=== PATIENT | female | born 1990 | race Hispanic/Latino ===

== ENCOUNTER 2023-01-17 12:05 | Observation (INO) | payer MEDICAID ==
[~2023-01-17] VITALS: Ht 167.6 cm; Wt 109.8 kg
[2023-01-17 13:46] LABS: BASOPHILS # (AUTO) 0.02 K/uL (0.00-0.20); BASOPHILS % (AUTO) 0.6 % (0.0-5.0); EOSINOPHILS % (AUTO) 2.8 % (0.0-8.0); HEMATOCRIT 36.8 % (36-48); IMMATURE GRANULOCYTE ABSOLUTE 0.02 K/uL (0-1); LYMPHOCYTES # (AUTO) 1.6 K/uL (1.0-4.8); LYMPHOCYTES % (AUTO) 43.2 % (21.0-51.0); MEAN CORPUSCULAR HEMOGLOBIN 28.2 pg (27.0-33.0); MEAN CORPUSCULAR HGB CONC 33.4 g/dL (32.0-36.0); MEAN CORPUSCULAR VOLUME 84.4 fL (79-99); MONOCYTES # (AUTO) 0.4 K/uL (0.1-1.0); NEUTROPHILS # (AUTO) 1.5 K/uL (1.8-7.7); NEUTROPHILS % (AUTO) 42.8 % (40.0-77.0); PLATELET COUNT (AUTO) 121 K/uL (130-400); RED BLOOD CELL COUNT(AUTO) 4.36 MIL/uL (4.00-5.50); RED CELL DISTRIBUTION WIDTH 13.2 % (11.0-15.5); WHITE BLOOD COUNT (AUTO) 3.6 K/uL (4.8-10.8)
[2023-01-17 13:47] LABS: ADD UA MICROSCOPIC YES; APPEARANCE,URINE CLEAR (CLEAR); BILIRUBIN,URINE NEGATIVE (NEGATIVE); COLOR,URINE YELLOW (YELLOW); GLUCOSE, URINE (UA) 70 mg/dL (NEGATIVE); KETONES,URINE NEGATIVE (NEGATIVE); LEUKOCYTE ESTERASE ,URINE 75 Leu/uL (NEGATIVE); NITRATE,URINE NEGATIVE (NEGATIVE); OCCULT BLOOD,URINE NEGATIVE (NEGATIVE); PH,URINE 6.5 (5.0-8.0); PROTEIN,URINE 10 mg/dL (NEGATIVE)
[2023-01-17 13:48] LABS: HCG,QUALITATIVE URINE NEGATIVE (NEGATIVE)
[2023-01-17 14:01] LABS: ALBUMIN 3.4 g/dL (3.5-5.0); BILIRUBIN,TOTAL 0.7 mg/dL (0.2-1.0); CREATININE 0.5 mg/dL (0.5-1.5); POTASSIUM 3.8 mmol/L (3.5-5.1); TOTAL PROTEIN, SERUM 8.2 g/dL (6.0-8.3)
[2023-01-17 14:15] LABS: MUCUS,URINE RARE LPF (None Seen); SQUAMOUS EPITHELIAL CELL,UR FEW /HPF (0-2)
[2023-01-17] MEDS ORDERED: CEFTRIAXONE 1G VIAL 1 GM in 0.9%NACL 50ML 50 ML IV SCH (14:30)
[2023-01-17] MEDS ORDERED: ACETAMINOPHEN 325 MG TAB PO PRN ×2 (14:30)
[2023-01-17] MEDS ORDERED: DEXTROSE 50%-WATER 50 ML DISP.SYRIN IV PRN (14:30)
[2023-01-17] MEDS ORDERED: LACTULOSE 20 GM/30 ML UDCUP PO PRN (14:30)
[2023-01-17] MEDS ORDERED: POTASSIUM CHLORIDE 20MEQ/100ML 100 ML IV PRN (14:30)
[2023-01-17] MEDS ORDERED: HYDROCODONE/ACETAMINOPHEN 5/325 MG TAB PO PRN ×2 (14:30)
[2023-01-17] MEDS ORDERED: KCL 20 MEQ ERTAB PO PRN (14:30)
[2023-01-17] MEDS ORDERED: MAGNESIUM 2GM PREMIX 50ML 50 ML IV PRN (14:30)
[2023-01-17] MEDS ORDERED: POTASSIUM CHLORIDE 10% ELIXIR 20 MEQ/15 ML UDCUP PO PRN (14:30)
[2023-01-17] MEDS ORDERED: ONDANSETRON 4MG INJ IV PRN (14:30)
[2023-01-17] MEDS ORDERED: NITROGLYCERIN 0.4 MG SL TAB SL PRN (14:30)
[2023-01-17] MEDS ORDERED: DIPHENHYDRAMINE HCL 25 MG CAPSULE PO PRN (14:30)
[2023-01-17] MEDS ORDERED: MAG/ALUM/SIMETH 30 ML UDCUP PO PRN (14:30)
[2023-01-17] MEDS ORDERED: GUAIFENESIN-DM 200/20 MG 10 ML PO PRN (14:30)
[2023-01-17] MEDS ORDERED: DiphenhydrAMINE HCL 50 MG/ML VIAL IV PRN (14:30)
[2023-01-17] MEDS ORDERED: GLUCAGON 1MG KIT 1 MG ML IM PRN (14:30)
[2023-01-17 14:57] LABS: INR 0.94 (0.85-1.15)
[2023-01-17 14:58] LABS: PARTIAL THROMBOPLASTIN TIME 28.8 SEC (26.3-35.5)
[2023-01-17 14:59] LABS: % IRON SATURATION 17.2 % (22-44)
[2023-01-17] MEDS ORDERED: CEFTRIAXONE 1G VIAL IVPB SCH (15:00)
[2023-01-17 15:21] LABS: HEMOGLOBIN A1C 9.6 % (4.0-6.0)
[2023-01-17] MEDS ORDERED: HYDROMORPHONE 0.5 MG SYG (0.5MG/0.5ML) IV PRN (15:30)
[2023-01-17] MEDS: LACTATED RINGERS 1000ML 1,000 ML IV SCH (16:01)
[2023-01-17] MEDS: INSULIN HUMULIN R 100 UNIT/ML 3ML SQ SCH ×2 (16:30→20:43)
[2023-01-17] MEDS ORDERED: 0.9%NACL 50ML IV SCH (17:00)
[2023-01-17] MEDS: ZOSYN 3.375GM +NS 50ML IVPB SCH (18:36)
[2023-01-17] MEDS: FAMOTIDINE 20MG TAB PO SCH (20:45)
[2023-01-17] MEDS ORDERED: FAMOTIDINE 20MG VIAL IV PRN (21:00)
[2023-01-17 22:10] VITALS: O2SAT 98
[2023-01-17 23:33] VITALS: BP 116/63; PULSE 81; RESP 20
[2023-01-18] MEDS: ZOSYN 3.375GM +NS 50ML IVPB SCH ×3 (02:08→17:22)
[2023-01-18] MEDS: LACTATED RINGERS 1000ML 1,000 ML IV SCH ×2 (02:08→03:50)
[2023-01-18] MEDS ORDERED: METF-446 PO (02:32)
[2023-01-18] MEDS ORDERED: LISI2.5T13 PO (02:34)
[2023-01-18] MEDS ORDERED: LEVO125 PO (02:37)
[2023-01-18] MEDS ORDERED: CANA300T PO (02:39)
[2023-01-18 02:44] LABS: HEPATITIS A IGM ANTIBODY Non-Reactive (Nonreactive); HEPATITIS B CORE IGM ANTIBODY Non-Reactive (Negative); HEPATITIS B SURFACE ANTIGEN Non-Reactive (Nonreactive); HEPATITIS C ANTIBODY Non-Reactive (Nonreactive)
[2023-01-18 03:18] VITALS: BP 111/71; PULSE 77; RESP 20
[2023-01-18] MEDS ORDERED: LIRA0.6P2 SQ (03:54)
[2023-01-18 06:15] LABS: BASOPHILS # (AUTO) 0.01 K/uL (0.00-0.20); BASOPHILS % (AUTO) 0.3 % (0.0-5.0); EOSINOPHILS % (AUTO) 2.9 % (0.0-8.0); HEMATOCRIT 33.5 % (36-48); IMMATURE GRANULOCYTE ABSOLUTE 0.02 K/uL (0-1); LYMPHOCYTES # (AUTO) 1.8 K/uL (1.0-4.8); LYMPHOCYTES % (AUTO) 51.2 % (21.0-51.0); MEAN CORPUSCULAR HEMOGLOBIN 28.4 pg (27.0-33.0); MEAN CORPUSCULAR HGB CONC 33.4 g/dL (32.0-36.0); MONOCYTES # (AUTO) 0.3 K/uL (0.1-1.0); MONOCYTES % (AUTO) 9.8 % (3.0-13.0); NEUTROPHILS # (AUTO) 1.2 K/uL (1.8-7.7); NEUTROPHILS % (AUTO) 35.2 % (40.0-77.0); PLATELET COUNT (AUTO) 105 K/uL (130-400); RED BLOOD CELL COUNT(AUTO) 3.94 MIL/uL (4.00-5.50); RED CELL DISTRIBUTION WIDTH 13.3 % (11.0-15.5); WHITE BLOOD COUNT (AUTO) 3.5 K/uL (4.8-10.8)
[2023-01-18 06:29] LABS: ALBUMIN 2.7 g/dL (3.5-5.0); BILIRUBIN,TOTAL 0.6 mg/dL (0.2-1.0); CREATININE 0.6 mg/dL (0.5-1.5); MAGNESIUM 1.7 mg/dL (1.80-2.40); PHOSPHORUS 4.3 mg/dL (2.5-4.9); POTASSIUM 3.9 mmol/L (3.5-5.1); TOTAL PROTEIN, SERUM 6.8 g/dL (6.0-8.3)
[2023-01-18 07:18] VITALS: BP 103/63; PULSE 68; RESP 16
[2023-01-18 07:35] VITALS: O2SAT 96
[2023-01-18] MEDS: INSULIN HUMULIN R 100 UNIT/ML 3ML SQ SCH ×4 (07:38→21:00)
[2023-01-18] MEDS: FAMOTIDINE 20MG TAB PO SCH ×2 (08:33→21:00)
[2023-01-18] MEDS: ENOXAPARIN SODIUM 40 MG/0.4 ML SYRINGE SQ SCH (08:34)
[2023-01-18 12:03] VITALS: BP 123/73; PULSE 70; RESP 16
[2023-01-18] MEDS: IRON SUCROSE COMPLEX 300 MG in 0.9% NACL 250ML IV SCH (12:07)
[2023-01-18 16:04] VITALS: BP 106/68; PULSE 74; RESP 16
[2023-01-18 20:16] VITALS: BP 110/68; PULSE 77; RESP 18; O2SAT 97
[2023-01-19 00:23] VITALS: BP 121/73; PULSE 84; RESP 18
[2023-01-19] MEDS: ZOSYN 3.375GM +NS 50ML IVPB SCH ×2 (01:01→08:49)
[2023-01-19 03:55] VITALS: BP 121/72; PULSE 76; RESP 18
[2023-01-19 06:49] LABS: BASOPHILS # (AUTO) 0.02 K/uL (0.00-0.20); BASOPHILS % (AUTO) 0.7 % (0.0-5.0); EOSINOPHILS # (AUTO) 0.08 K/uL (0.00-0.70); EOSINOPHILS % (AUTO) 2.8 % (0.0-8.0); HEMATOCRIT 35.9 % (36-48); IMMATURE GRANULOCYTE ABSOLUTE 0.02 K/uL (0-1); LYMPHOCYTES # (AUTO) 1.3 K/uL (1.0-4.8); LYMPHOCYTES % (AUTO) 45.2 % (21.0-51.0); MEAN CORPUSCULAR HEMOGLOBIN 28.8 pg (27.0-33.0); MEAN CORPUSCULAR HGB CONC 32.9 g/dL (32.0-36.0); MEAN CORPUSCULAR VOLUME 87.6 fL (79-99); MONOCYTES # (AUTO) 0.3 K/uL (0.1-1.0); MONOCYTES % (AUTO) 10.6 % (3.0-13.0); NEUTROPHILS # (AUTO) 1.1 K/uL (1.8-7.7); PLATELET COUNT (AUTO) 115 K/uL (130-400); RED CELL DISTRIBUTION WIDTH 13.3 % (11.0-15.5); WHITE BLOOD COUNT (AUTO) 2.8 K/uL (4.8-10.8)
[2023-01-19] MEDS: INSULIN HUMULIN R 100 UNIT/ML 3ML SQ SCH ×2 (06:51→12:29)
[2023-01-19 07:08] LABS: BILIRUBIN,TOTAL 0.6 mg/dL (0.2-1.0); CREATININE 0.5 mg/dL (0.5-1.5); POTASSIUM 3.5 mmol/L (3.5-5.1); TOTAL PROTEIN, SERUM 7.4 g/dL (6.0-8.3)
[2023-01-19 07:18] LABS: EOSINOPHILS % (MANUAL) 3 % (1-6); LYMPHOCYTES % (MANUAL) 39 % (22-44); MAN.DIFF COMMENT-IMPRESSION MANUAL DIFFERENTIAL; MONOCYTES % (MANUAL) 9 % (2-9); SEGMENTED NEUTROPHILS % 49 % (40-70); TOTAL CELLS COUNTED 100
[2023-01-19 07:19] LABS: PLATELET MORPHOLOGY COMMENT SLIGHT INCREASED; WBC MORPHOLOGY SLIDE REVIEWED
[2023-01-19 07:37] VITALS: BP 110/70; PULSE 69; RESP 16
[2023-01-19] MEDS: ENOXAPARIN SODIUM 40 MG/0.4 ML SYRINGE SQ SCH (08:49)
[2023-01-19] MEDS: FAMOTIDINE 20MG TAB PO SCH (08:49)
[2023-01-19 11:50] VITALS: BP 107/70; PULSE 77; RESP 16
[2023-01-19] MEDS: IRON SUCROSE COMPLEX 300 MG in 0.9% NACL 250ML IV SCH (12:32)
== END 2023-01-19 13:15 | disposition home or self-care (01) ==
LOC: EDH 12:05 → OBSVTOIN 12:06 → INTOOBSV 12:06 → EDHIP 12:06 → WSH 22:05 → UNDODISOB 01-19 13:15
PROVIDERS: ADMIT Internal Medicine; ATTEND Internal Medicine
DX: K80.20 Calculus of gallbladder without cholecystitis without obstruction (principal); I10 Essential (primary) hypertension; E11.9 Type 2 diabetes mellitus without complications; N20.0 Calculus of kidney; D69.6 Thrombocytopenia, unspecified; R79.89 Other specified abnormal findings of blood chemistry; R16.0 Hepatomegaly, not elsewhere classified; R16.1 Splenomegaly, not elsewhere classified; E66.01 Morbid (severe) obesity due to excess calories; R11.2 Nausea with vomiting, unspecified; E78.00 Pure hypercholesterolemia, unspecified; Z79.84 Long term (current) use of oral hypoglycemic drugs; Z79.899 Other long term (current) drug therapy; Z68.39 Body mass index [BMI] 39.0-39.9, adult; Z98.890 Other specified postprocedural states
CPT/HCPCS: 96372 ×3; 96365; 96366; 96375; 83036; 83540; 83550; 82977; 80053 ×3; 83690 ×2; 85025 ×3; 85610; 85730; 87040 ×2; 87088; 82948 ×7; 83605; 80074; 81001; 81025; 36415 ×3; 74176; 76705; 83735; 84100; 80061; 78226; J7120 ×2; J0696; J2405; J1815 ×4; J2543 ×6; J1756 ×2; J1650 ×2; J7050 ×2; A9537; G0378 ×13